=== PATIENT | male | born 1995 | race Caucasian/White ===

== ENCOUNTER 2020-03-28 15:04 | Inpatient (IN) | payer OTHER ==
[~2020-03-28] VITALS: Ht 193 cm; Wt 95.3 kg
[2020-03-28 15:25] VITALS: BP 105/77
[2020-03-28 16:34] LABS: ABSOLUTE NEUTROPHILS 16.9 thou/uL (1.4-8.2); BASOPHILS 0.3 % (0.0-2.0); EOSINOPHILS 0.2 % (0.0-3.0); HEMATOCRIT 46.1 % (42.0-52.0); HEMOGLOBIN 15.8 gm/dL (14.0-18.0); LYMPHOCYTES 5.3 % (24.0-44.0); MCH 32.2 pg (26.0-34.0); MCHC 34.1 g/dL (28.0-37.0); MCV 94.2 fL (80.0-100.0); MONOCYTES 5.4 % (1.0-8.0); PLATELET COUNT 243 thou/uL (150-400); POLYS 88.8 % (36.0-66.0); RDW 13.5 % (10.5-14.5); WBC 19.1 thou/uL (4.0-11.0)
[2020-03-28 16:43] LABS: CALCIUM 9.7 mg/dL (8.5-10.1); CREATININE 1.1 mg/dL (0.7-1.3)
[2020-03-28 16:48] LABS: ALBUMIN 4.4 g/dL (3.4-5.0); TOTAL BILIRUBIN 0.8 mg/dL (0.2-1.0); TOTAL PROTEIN 7.7 g/dL (6.4-8.2)
[2020-03-28 23:25] VITALS: BP 99/54
[2020-03-28 23:45] VITALS: BP 144/76
[2020-03-28 23:49] VITALS: BP 99/54
[2020-03-29 04:11] VITALS: BP 104/65
--- NOTE | 2020-03-29 04:43 | NUR ---
ADMITTED FROM ER UNDER 'S CARE. ADMITTED FOR ACUTE APPENDICITIS. KEPT NPO FOR SURGERY IN AM. VSS. NO S/S ACUTE DISTRESS NOTED OR REPORTED AT THIS TIME. WILL CONT TO MONITOR FOR ANY CHANGES IN CONDITION.
[2020-03-29 05:54] LABS: HEMATOCRIT 42.2 % (42.0-52.0); HEMOGLOBIN 14.3 gm/dL (14.0-18.0); MCH 32.2 pg (26.0-34.0); MCHC 33.9 g/dL (28.0-37.0); RBC 4.44 mil/uL (4.50-6.00); RDW 13.1 % (10.5-14.5); WBC 12.6 thou/uL (4.0-11.0)
[2020-03-29 06:14] LABS: ALBUMIN 3.7 g/dL (3.4-5.0); CALCIUM 8.9 mg/dL (8.5-10.1); CREATININE 0.9 mg/dL (0.7-1.3); PHOSPHORUS 4.8 mg/dL (2.5-4.9); POTASSIUM 3.8 mmol/L (3.5-5.1)
[2020-03-29 07:45] VITALS: BP 117/70
[2020-03-29 17:00] VITALS: BP 128/67
--- NOTE | 2020-03-29 17:52 | NUR ---
ASSUMED CARE PT SHIFT CHANGE. ASSESSMENTS CHARTED.MEDS GIVEN PER OCT. PT ALERT AND ORIENTED.VSS. PT INDEPENDENT WITH NEEDS. CALLS FOR ADDITONAL NEEDS. PT TO HAVE APPENTDECTOMY THIS SHIFT. SURGERY CALLED TO GET TIME FOR PROCEDURE, ESTIMATED TIME TO BE LATER IN EVENING. PT NOTIFIED. THIS NURSE INFORMED BY [employer] ATTENDANT THAT PT WILL BE MOVED TO ROOM 445 AFTER SURGERY. WILL INFORM PT AND SURGERY STAFF. PT CURRENTLY RESTING IN BED,. DENIES NEEDS. MOTHER AT BEDSIDE. WILL CONT TO MONITOR AND FOLLOW POC.
[2020-03-29] MEDS ORDERED: IBUPROFEN 200200 M1 PO (19:14)
[2020-03-29] MEDS ORDERED: OXYCODONE HCL 55 MG PO (19:15)
[2020-03-29] MEDS ORDERED: MIRALAX17 GM PO (19:15)
[2020-03-29] MEDS ORDERED: ACETAMINOPHEN325 M1 PO (19:15)
[2020-03-29] MEDS ORDERED: SENNA-TIME S T1 EACH PO (19:15)
[2020-03-29 21:20] VITALS: BP 144/72
[2020-03-29 22:52] VITALS: BP 128/67
--- NOTE | 2020-03-29 23:21 | NUR ---
PT ARRIVED FROM PACU @2100 A&0X4 WITH MOM AT BEDSIDE. LAP SITES WITH DERMABOND INTACT. DISCHARGE PENDING. VITAL SIGNS STABLE. TYLENOL GIVEN X1 FOR PAIN RELIEF. PT C/O OF NAUSEA AND DRY HEAVING ZOFRAN GIVEN WITH COMPLETE RELIEF. ASSESSMENT DONE AND PT VOICED STABLE ENOUGH TO GO HOME. DISCHARGE EDUCATION PROVIDED. IVS TAKEN OUT AND PT DISCHARGED AT 2300 TO HOME.
== END 2020-03-29 23:00 | disposition home or self-care (01) | DRG 343 ==
LOC: ER 15:04 → EROBS 19:37 → 2N 23:49 → 4S 03-29 21:05
PROVIDERS: Emergency Medicine; ADMIT Surgery; ATTEND Surgery
PROC: 0DTJ4ZZ Resection of Appendix, Percutaneous Endoscopic Approach (ICD-10-PCS; principal; 2020-03-29)
DX: K35.80 Unspecified acute appendicitis (principal); F17.210 Nicotine dependence, cigarettes, uncomplicated; F12.90 Cannabis use, unspecified, uncomplicated; Z20.828 Contact with and (suspected) exposure to other viral communicable diseases; Z79.899 Other long term (current) drug therapy
CPT/HCPCS: 10194; 50010; 50101; 62110; 62900; 70005